=== PATIENT | female | born 2000 | race Hispanic/Latino ===

== ENCOUNTER 2021-03-06 18:14 | Observation (INO) | payer MEDICAID, OTHER ==
[~2021-03-06] VITALS: Ht 154.9 cm; Wt 72.1 kg
[2021-03-06 18:16] VITALS: BP 116/58
[2021-03-06 18:17] VITALS: BP 116/58
[2021-03-06 18:49] LABS: APPEARANCE,URINE Clear (CLEAR); BILIRUBIN,URINE Negative (NEGATIVE); GLUCOSE, URINE (UA) Negative (NEGATIVE); KETONES,URINE Negative (NEGATIVE); LEUKOCYTE ESTERASE ,URINE Small (NEGATIVE); NITRATE,URINE Negative (NEGATIVE); OCCULT BLOOD,URINE Negative (NEGATIVE); PH,URINE 7.5 (5.0-8.0); PROTEIN,URINE Negative (NEGATIVE); UROBILINOGEN,URINE 0.2 mg/dL (0.2-1.0)
[2021-03-06 19:03] LABS: COLOR,URINE STRAW (YELLOW)
[2021-03-06 19:22] LABS: BACTERIA,URINE Few /HPF (None Seen); RBC,URINE None Seen /HPF (0-1); WBC,URINE 0-1 /HPF (0-1)
[2021-03-06 19:23] LABS: AMPHET/METH SCREEN,URINE NEGATIVE (NEGATIVE); BARBITURATE SCREEN, URINE NEGATIVE (NEGATIVE); BENZODIAZEPINES SCREEN,URINE NEGATIVE (NEGATIVE); CANNABINOID SCREEN,URINE NEGATIVE (NEGATIVE); COCAINE SCREEN,URINE NEGATIVE (NEGATIVE); OPIATE SCREEN,URINE NEGATIVE (NEGATIVE); PHENCYCLIDINE SCREEN,URINE NEGATIVE (NEGATIVE)
[2021-03-06] MEDS ORDERED: PROMETHAZINE HCL 25 MG/ML 1ML AMPULE IM ONE (20:00)
[2021-03-06] MEDS ORDERED: MEPERIDINE-PF 50 MG/ML SYG IVP ONE (20:00)
[2021-03-06] MEDS: LACTATED RINGERS 1000ML 1,000 ML IV SCH ×2 (20:19→22:00)
== END 2021-03-06 22:35 | disposition home or self-care (01) ==
LOC: EDH 18:14 → LDH 18:30
PROVIDERS: ADMIT Obstetrics & Gynecology; ATTEND Obstetrics & Gynecology
DX: O62.9 Abnormality of forces of labor, unspecified (principal); O26.892 Other specified pregnancy related conditions, second trimester; R10.11 Right upper quadrant pain; R10.12 Left upper quadrant pain; Z3A.25 25 weeks gestation of pregnancy; Z79.899 Other long term (current) drug therapy
CPT/HCPCS: 59025; 80305; 81001; 96361; 96372; 96374; G0378 ×4; G0379; J2175; J2550; J7120; 96360

== ENCOUNTER 2024-06-22 20:30 | Emergency (ER) | payer BC, MEDICAID ==
[~2024-06-22] VITALS: Ht 154.9 cm; Wt 73.5 kg
[2024-06-22 20:46] VITALS: TEMP 98.1
[2024-06-22 21:57] LABS: APPEARANCE,URINE CLEAR (CLEAR); BILIRUBIN,URINE NEGATIVE (NEGATIVE); COLOR,URINE LIGHT-YELLOW (YELLOW); GLUCOSE, URINE (UA) NEGATIVE (NEGATIVE); KETONES,URINE NEGATIVE (NEGATIVE); LEUKOCYTE ESTERASE ,URINE NEGATIVE Leu/uL (NEGATIVE); NITRATE,URINE NEGATIVE (NEGATIVE); OCCULT BLOOD,URINE NEGATIVE (NEGATIVE); PROTEIN,URINE NEGATIVE (NEGATIVE); UROBILINOGEN,URINE 0.2 mg/dL (0.2-1.0)
--- NOTE | 2024-06-22 21:58 | HMCIMG ---
ULTRASOUND OB LIMITED INDICATION: Viability. TECHNIQUE: Real-time transabdominal approach ultrasound examination of the pelvis was performed by the surveillance observer, and images subsequently made available for review. COMPARISON: None FINDINGS: Single live intrauterine gestation in longitudinal lie and cephalic presentation. heart rate = 166 beats per minute. Posterior fundal grade 0 placenta without previa demonstrated. The amniotic fluid volume is normal at 13.7 cm. Limited anatomy secondary to gestational age. Estimated sonographic gestational age = 17 weeks 1 days +/- 8 days. Estimated weight = 181 grams +/- 27 grams. Cervix is closed. IMPRESSION: 1. Single live intrauterine gestation in cephalic presentation, and with heart rate of 166 bpm. 2. Parameters as reported.
[2024-06-22 21:59] LABS: ADD UA MICROSCOPIC YES
[2024-06-22 22:01] LABS: BACTERIA,URINE RARE /HPF (None Seen); MUCUS,URINE RARE LPF (None Seen); RBC,URINE 0-1 /HPF (0-1); SQUAMOUS EPITHELIAL CELL,UR RARE /HPF (0-2); WBC,URINE 0-1 /HPF (0-1)
[2024-06-22] MEDS: acetaMINOPHEN 325 MG TAB PO ONE (23:03)
[2024-06-22] MEDS: 0.9%NACL 1000ML 1,000 ML IV ONE (23:04)
[2024-06-22 23:11] LABS: BASOPHILS # (AUTO) 0.03 K/uL (0.00-0.20); BASOPHILS % (AUTO) 0.3 % (0.0-5.0); EOSINOPHILS # (AUTO) 0.14 K/uL (0.00-0.70); EOSINOPHILS % (AUTO) 1.4 % (0.0-8.0); HEMATOCRIT 37.5 % (36-48); IMMATURE GRANULOCYTE ABSOLUTE 0.03 K/uL (0-1); LYMPHOCYTES # (AUTO) 2.8 K/uL (1.0-4.8); LYMPHOCYTES % (AUTO) 27.1 % (21.0-51.0); MEAN CORPUSCULAR HEMOGLOBIN 29.8 pg (27.0-33.0); MEAN CORPUSCULAR HGB CONC 33.9 g/dL (32.0-36.0); MONOCYTES # (AUTO) 0.5 K/uL (0.1-1.0); MONOCYTES % (AUTO) 5.2 % (3.0-13.0); NEUTROPHILS # (AUTO) 6.8 K/uL (1.8-7.7); NEUTROPHILS % (AUTO) 65.7 % (40.0-77.0); PLATELET COUNT (AUTO) 242 K/uL (130-400); RED BLOOD CELL COUNT(AUTO) 4.26 MIL/uL (4.00-5.50); RED CELL DISTRIBUTION WIDTH 12.5 % (11.0-15.5); WHITE BLOOD COUNT (AUTO) 10.3 K/uL (4.8-10.8)
--- NOTE | 2024-06-22 23:18 | ERN ---
ED Note History of Present Illness Stated Complaint: OB 16WKS Chief Complaint: OB<20 weeks gest. Time Seen by MD: 21:20 Time Seen by Midlevel: 21:20 Dictation: The patient is a 23-year-old female with a history of who presents to the emergency department with two days of right lower abdominal pain that is worse with movement. Patient denies any vomiting, diarrhea, fevers, constipation, vaginal bleeding. Reports being [address] Afua Stinson Allergies: Coded Allergies: No Known Drug Intolerances (Unverified Allergy, Unknown, 03/06/21) Past Medical History Past Medical History: No Pertinent History Surgical History: LMP: Jul 07, 2021 : 1 Para: 0 Aborts: 0 RN Note Reviewed/Agreed w/PFSH: Yes Review of System Dictation Constitutional: Negative for fever,chills, and weight loss Eyes: Negative for injury, pain,redness, and discharge ENT: Negative for injury,pain or swelling Cardiovascular: Negative for chest pain, palpitations, and edema Respiratory: Negative for shortness of breath, cough, and wheezing, Abdomen/GI: Negative for nausea, vomiting, diarrhea, and constipation positive for abdominal pain Back: Negative for injury and pain : Negative for injury, bleeding and discharge MS/Extremity: Negative for injury and deformity Skin: Negative for rash, and discoloration Neuro: Negative for headache, weakness, numbness, tingling, and seizure Psych: Negative for suicide ideation, homicidal ideation, and hallucinations Initial Vital Sign VS Vital Signs Date Time Temp Pulse Resp B/P (MAP) Pulse Ox O2 Delivery O2 Flow Rate FiO2 06/22/24 20:46 98.1 74 18 117/66 100 Room Air 0 06/22/24 23:09 21 Physical Exam Dictation Vital Signs reviewed General Appearance: Alert, oriented x 3, no acute distress, well developed, nourished. Head and Face: non-traumatic. Eyes: PERRL, pink conjunctivas, eyelid no trauma, anterior chamber with arcus senilis. Ears: Pinnas intact and no signs of trauma or erythema ear canals clear and no discharge TM no erythema Nose: No discharge, no bleeding. Oropharynx: Mouth normal, tongue pink. pharynx clear,no erythema, tonsils no exudates, no abscesses noted, mucous membrane moist Neck: Supple, non-tender, no thyromegaly, no masses, no JVD, no bruits Breast:Deferred Chest:No tenderness, no crepitus, no paradoxical movement, no retractions Lungs:Clear, well-ventilated, symmetric, no rales, no wheezing, no rhonchi, no stridor, good breath sounds bilaterally Heart: Regular rate, regular rhythm, no murmur, no gallops Vascular: no peripheral edema, Abdomen: Soft, positive bowel sounds, nondistended, no guarding, nontender, no rebound, no masses no hepatomegaly, no splenomegaly, no Wadsworth's sign, no hernias. Rectal: Deferred Genital: Deferred Neurological: Normal speech, motor function intact, sensory function intact Musculoskeletal: Neck nontender, full range of motion, back nontender, full range of motion, Extremities: nontender, full range of motion Skin: Color pink, dry, no turgor, no rash, no lacerations, no abrasions, no contusions. Lymphatic: Deferred Results (Laboratory/Radiology) Laboratory/Radiology Laboratory Tests Test 06/22/24 21:06 06/22/24 22:59 Urine Color LIGHT-YELLOW (YELLOW) Urine Appearance CLEAR (CLEAR) Urine pH 7.0 (5.0-8.0) Urine Specific [place] 1.012 (1.001-1.031) Urine Protein NEGATIVE mg/dL (NEGATIVE) Urine Glucose (UA) NEGATIVE mg/dL (NEGATIVE) Urine Ketones NEGATIVE mg/dL (NEGATIVE) Urine Occult Blood NEGATIVE (NEGATIVE) Urine Nitrate NEGATIVE (NEGATIVE) Urine Bilirubin NEGATIVE mg/dL (NEGATIVE) Urine Urobilinogen 0.2 mg/dL (0.2-1.0) Urine Leukocyte Esterase NEGATIVE Zheng/uL Urine RBC 0-1 /HPF (0-1) Urine WBC 0-1 /HPF (0-1) Urine Squamous Epithelial Cells RARE /HPF (0-2) Urine Bacteria RARE /HPF (None Seen) White Blood Count 10.3 K/uL (4.8-10.8) Red Blood Count 4.26 MIL/uL (4.00-5.50) Hemoglobin 12.7 g/dL (12.0-16.0) Hematocrit 37.5 % (36-48) Mean Corpuscular Volume 88.0 fL (79-99) Mean Corpuscular Hemoglobin 29.8 pg (27.0-33.0) Mean Corpuscular Hemoglobin Concent 33.9 g/dL (32.0-36.0) Red Cell Distribution Width 12.5 % (11.0-15.5) Platelet Count 242 K/uL (130-400) Mean Platelet Volume 10.1 fL (7.5-10.5) Immature Granulocyte % (Auto) 0.3 % (0-1) Neutrophils (%) (Auto) 65.7 % (40.0-77.0) Lymphocytes (%) (Auto) 27.1 % (21.0-51.0) Monocytes (%) (Auto) 5.2 % (3.0-13.0) Eosinophils (%) (Auto) 1.4 % (0.0-8.0) Basophils (%) (Auto) 0.3 % (0.0-5.0) Neutrophils # (Auto) 6.8 K/uL (1.8-7.7) Lymphocytes # (Auto) 2.8 K/uL (1.0-4.8) Monocytes # (Auto) 0.5 K/uL (0.1-1.0) Eosinophils # (Auto) 0.14 K/uL (0.00-0.70) Basophils # (Auto) 0.03 K/uL (0.00-0.20) Absolute Immature Granulocyte (auto 0.03 K/uL (0-1) Nucleated Red Blood Cells 0.0 % (0.0-0.19) Sodium Level 138 mmol/L (136-145) Potassium Level 3.6 mmol/L (3.5-5.1) Chloride Level 102 mmol/L (101-111) Carbon Dioxide Level 24 mmol/L (21-32) Blood Urea Nitrogen 7 mg/dL (7-18) Creatinine 0.6 mg/dL (0.5-1.0) Glomerular Filtration Rate Calc 128 mL/min (>90) Random Glucose 97 mg/dL (70-105) Total Calcium 9.3 mg/dL (8.5-10.1) Human Chorionic Gonadotropin, Quant 7827 mIU/mL (0-5) H REASON: VAGINAL BLEEDING ORDERING PHYSICIAN: MARIBEL CRANE PROCEDURE: OB >14 - US OB >14 WEEKS ULTRASOUND OB LIMITED INDICATION: Viability. TECHNIQUE: Real-time transabdominal approach ultrasound examination of the pelvis was performed by the senior clerk, and images subsequently made available for review. COMPARISON: None FINDINGS: Single live intrauterine gestation in longitudinal lie and cephalic presentation. heart rate = 166 beats per minute. Posterior fundal grade 0 placenta without previa demonstrated. The amniotic fluid volume is normal at 13.7 cm. Limited anatomy secondary to gestational age. Estimated sonographic gestational age = 17 weeks 1 days +/- 8 days. Estimated weight = 181 grams +/- 27 grams. Cervix is closed. IMPRESSION: 1. Single live intrauterine gestation in cephalic presentation, and with heart rate of 166 bpm. 2. Parameters as reported. Labs Reviewed?: Yes ED Course ED Course Orders Procedure Category Date Status Time Cbc With Differential LAB 06/22/24 Complete 21: Abo/Rh BBK 06/22/24 In Process 21:23 Hcg,Quantitative LAB 06/22/24 Complete 21:23 Us Ob >14 Weeks US 06/22/24 Resulted 21:23 0.9%Nacl 1000ml (Ns PHA 06/22/24 Complete 1000ml) 21:30 Acetaminophen 325 Tab PHA 06/22/24 Complete (Tylenol 325mg Tab 21:30 Basic Metabolic Panel LAB 06/22/24 Complete 21:23 Urinalysis Profile LAB 06/22/24 Complete 21:23 Current Medications Medications (Trade) Dose Ordered Sig/Emelyn Route PRN Reason Start Time Stop Time Status Last Admin Dose Admin Acetaminophen (TYLenol 325MG TAB) 650 mg ONCE ONCE PO 06/22/24 21:30 06/22/24 21:31 DC 06/22/24 23:03 Sodium Chloride 1,000 ml @ 0 mls/hr ONCE ONCE IV 06/22/24 21:30 06/22/24 21:31 DC 06/22/24 23:04 Vital Signs Date Time Temp Pulse Resp B/P (MAP) Pulse Ox O2 Delivery O2 Flow Rate FiO2 06/22/24 23:09 67 16 123/69 100 Room Air* 0 21 06/22/24 20:46 98.1 74 18 117/66 100 Room Air 0 Medical Decision Making MDM The patient is a 23-year-old female with a history of who presents to the emergency department with two days of right lower abdominal pain that is worse with movement. Patient denies any vomiting, diarrhea, fevers, constipation, vaginal bleeding. Reports being [address] Afua Stinson CBC showed no leukocytosis, no anemia, chemistry showed no electrolyte imbalance, normal renal function, hCG 7827. Ultrasound revealed an intrauterine of 17 weeks. heart rate of 166bpm, urinalysis unremarkable. Patient with no vaginal bleeding. Instructed to follow up with OBGYN as soon as possible. Patient reports she has an appointment on Wednesday. Differential diagnosis: UTI, during , ectopic , dehydration, electrolyte imbalance, appendicitis Need for hospitalization: Patient does not meet criteria for hospitalization. There are no social concerns with this patient. DX & DISP Disposition: Discharge Departure Impression: Primary Impression: Abdominal pain during Condition: Stable Additional Instructions: Please follow up with your primary doctor in OBGYN as soon as possible. If symptoms worsen, you develop vaginal bleeding, fevers, nausea vomiting or diarrhea please return to ER. FOLLOW-UP WITH PRIMARY CARE PROVIDER IN 1 TO 2 DAYS. TAKE MEDICATIONS DIRECTED HERE IN THE EMERGENCY ROOM. OKAY TO CONTINUE HOME MEDICATIONS UNLESS OTHERWISE DISCUSSED DURING YOUR VISIT IN THE EMERGENCY ROOM TODAY. RETURN TO YOUR NEAREST EMERGENCY ROOM IF SYMPTOMS WORSEN OR IF THERE IS NO IMPROVEMENT. CALL 911 IF YOU NEED IMMEDIATE ASSISTANCE. TAKE TYLENOL [id number] NEEDED AND IF NO CONTRAINDICATIONS ARE PRESENT. INCREASE ORAL HYDRATION. A WOUND CULTURE OR URINE CULTURE WAS ORDERED HERE IN THE EMERGENCY ROOM DEPARTMENT PLEASE FOLLOW-UP WITH PRIMARY CARE PROVIDER AND ADVISE THEM TO GET REPEAT PORTS FROM OUR FACILITY. IF YOU HAD ANY CHIVO WRAP/SPLINTS THAT WERE APPLIED HERE, PLEASE DO NOT REMOVE THEM UNTIL YOU SEE YOUR PRIMARY CARE OR SPECIALTY. Referrals: AFUA STINSON (PCP) Time of Disposition: 00:11 I have reviewed the case, and I agree with, Diagnosis and Plan MARIBEL CRANE Jun 22, 2024 23:18
[2024-06-22 23:22] LABS: CREATININE 0.6 mg/dL (0.5-1.0); POTASSIUM 3.6 mmol/L (3.5-5.1)
[2024-06-23 01:20] VITALS: BP 116/56; PULSE 69; RESP 17; O2SAT 100
== END 2024-06-23 01:22 | disposition home or self-care (01) ==
LOC: EDH 20:30
DX: O26.892 Other specified pregnancy related conditions, second trimester (principal); R10.31 Right lower quadrant pain; R10.2 Pelvic and perineal pain; Z3A.00 Weeks of gestation of pregnancy not specified
CPT/HCPCS: 99284; 76805; 80048; 84702; 85025; 86900; 86901; 81001; 36415; J7030